=== PATIENT | female | born 1975 | race Caucasian/White ===

== ENCOUNTER 2019-07-17 12:40 | Outpatient (CLI) | payer OTHER, SELFPAY ==
--- NOTE | ~2019-07-17 | MMUS_ITS ---
EXAMINATION: MM diagnostic julia BI w kristin, US breast RT complete HISTORY: Right breast pain and axillary pain TECHNIQUE: Additional 3-D tomosynthesis images of the breasts were performed and synthetic 2-D images were generated. CAD analysis was submitted and interpreted. High resolution right breast ultrasound was performed. COMPARISON: 12/22/2014 FINDINGS: MAMMOGRAPHIC FINDINGS: Breast composed of scattered areas of fibroglandular density. There are no suspicious masses, calcifi cations or architectural distortion in either breast to suggest malignancy. ULTRASOUND: Right breast/axillary ultrasound: In the area of pain at 3:00 in the right breast there is no discret e solid or cystic mass. There are multiple normal-appearing right axillary lymph nodes, largest measu ring 1.3 cm with normal fatty hilum. At 11:00, 4 cm from the nipple there is a 4 mm calcification cor responding to calcifications seen on mammogram. No suspicious masses to suggest malignancy. IMPRESSION: 1. No mammographic or sonographic evidence for malignancy. 2. Routine yearly screening mammogram and regular clinical breast examination are recommended. BI-RADS Category 2: Benign finding(s). Reviewed, dictated and finalized at location A. IMPRESSION: 1. No mammographic or sonographic evidence for malignancy. 2. Routine yearly screening mammogram and regular clinical breast examination a re recommended. BI-RADS Category 2: Benign finding(s).
== END 2019-07-17 12:41 | disposition home or self-care (01) ==
LOC: ANHIMG 12:44
PROVIDERS: PCP Nurse Practitioner; Visit Provider Nurse Practitioner
DX: M79.89 Other specified soft tissue disorders (principal); N64.4 Mastodynia
CPT/HCPCS: 76641; 77062; 77066; G0279

== ENCOUNTER 2019-09-16 18:16 | Emergency (ER) | payer OTHER, SELFPAY ==
[2019-09-16 18:46] VITALS: BP 112/79; PULSE 80; RESP 16; TEMP 36.9; O2SAT 100
[2019-09-16 19:06] LABS: Basophils Percent Auto 0.3 % (0.2-1.2); Eosinophils Absolute Auto 0.2 K/mm3 (0-0.3); Eosinophils Percent Auto 2.5 % (0-4.4); Hematocrit 38.7 % (37.0-47.0); Hemoglobin 13.3 g/dL (12.0-15.0); Immature Granulocyte Absolute 0.05 K/mm3 (0.00-0.031); Immature Granulocyte Percent A 0.7 % (0-0.5); Lymphocytes Absolute Auto 2.02 K/mm3 (0.9-3.2); Lymphocytes Percent Auto 29.2 % (18.3-44.2); Mean Corpuscular HGB Conc 34.4 g/dl (32-36); Mean Corpuscular Hemoglobin 30.6 pg (26-34); Mean Platelet Volume 9.6 fl (7.4-10.4); Monocytes Absolute Auto 0.6 K/mm3 (0.1-0.6); Monocytes Percent Auto 9.1 % (2.6-8.5); Neutrophils Percent Auto 58.2 % (45.5-73.1); Platelet Count Result 332 k/mm3 (150-375); Red Blood Count 4.35 M/mm3 (4.2-5.4); Red Cell Distribution Width 12.1 % (11.5-14.5); White Blood Count 6.9 K/mm3 (4.5-10.0)
[2019-09-16 19:17] LABS: Alanine Aminotransferase 30 U/L (4-35); Albumin Level 3.9 g/dL (3.5-5.1); Alkaline Phosphatase 68 U/L (38-126); Anion Gap 11.6 mmol/L (7-16); Aspartate Amino Transferase 30 U/L (14-36); Bilirubin,Total 0.5 mg/dL (0.2-1.3); Blood Urea Nitrogen 9 mg/dL (7-17); Calcium 8.8 mg/dL (8.4-10.2); Carbon Dioxide 27 mmol/L (22-30); Chloride 104 mmol/L (98-107); Estimated CRCL calculation 98 ml/min; Estimated Glomerular Filt Rate > 60; Glucose 86 mg/dL (65-105); Lipase 86 U/L (23-300); Potassium 3.6 mmol/L (3.4-5.0); Sodium 139 mmol/L (137-145)
[2019-09-16 20:08] VITALS: BP 120/86; PULSE 81; RESP 21; O2SAT 100
--- NOTE | 2019-09-16 20:10 | ED.URI ---
HPI - URI/Sore Throat General Chief Complaint: Upper Respiratory Infection Stated Complaint: vomiting Time Seen by Provider: 09/16/19 20:10 History of Present Illness HPI Narrative: She was recently started on Augmentin for sinusitis. Shortlly after starting this she gegan having GI upset. She was changed to amoxicillin. She continues to have nausea. Related Data Home Medications Medication Instructions Recorded Confirmed aspirin 81 mg PO DAILY 09/16/19 cholecalciferol (vitamin D3) 10 mcg PO DAILY 09/16/19 [Vitamin D3] oxybutynin chloride 5 mg PO BID 09/16/19 sertraline mg 09/16/19 Allergies Allergy/AdvReac Type Severity Reaction Status Date / Time No Known Allergies Allergy Unknown Verified 09/16/19 20:10 Review of Systems Review of Systems: All systems reviewed & are unremarkable except as noted in HPI and below Constitutional: Constitutional: Denies fever(s) ENT: Denies sore throat Cardiovascular: Cardiovascular: Denies chest pain Respiratory: Respiratory: Denies dyspnea Gastrointestinal: Gastrointestinal: Reports diarrhea, Reports nausea and Reports vomiting Exam Const: General: healthy appearing, no acute distress and alert Orientation/consciousness: patient oriented x3 HENMT: Head: normal to inspection Neck: Neck: normal visual inspection and no lymphadenopathy Chest: Chest palpation & inspection: no tenderness Resp: Effort & Inspection: normal respiratory effort Auscultation: clear to auscultation bilaterally, no rales, no rhonchi and no wheezes Cardio: Jugular venous distension: no JVD Rate: regular rate Rhythm: regular rhythm Heart sounds: no murmurs GI: Inspection: non-distended GI Palp: Yes Soft to palpation and No Tenderness to palpation present (GI) Skin: General skin exam: normal color Neuro: General: patient oriented x3 and moves all extremities Speech: normal speech Extrem: General: no edema Psych: Appearance: well kempt Affect: normal affect Course Vital Signs Vital signs: Vital Signs Temperature 36.9 C 09/16/19 18:46 Pulse Rate 80 09/16/19 18:46 Respiratory Rate 16 09/16/19 18:46 Blood Pressure 112/79 09/16/19 18:46 Pulse Oximetry 100 09/16/19 18:46 Temperature 36.9 C 09/16/19 18:46 Pulse Rate 82 09/16/19 23:00 Respiratory Rate 17 09/16/19 23:00 Blood Pressure 120/86 09/16/19 20:08 Pulse Oximetry 97 09/16/19 23:00 MDM - URI/Sore Throat MDM Narrative Medical decision making narrative: Feeling better and tolerating PO after treatment Medical Records Attestation: I reviewed the patient's medical records. Lab Data Attestation: I reviewed the patient's lab results. Result diagrams: 09/16/19 19:00 09/16/19 19:00 Labs: Lab Results 09/16/19 09/16/19 09/16/19 Range/Units 19:00 19:00 20:05 WBC 6.9 (4.5-10.0) K/mm3 RBC 4.35 (4.2-5.4) M/mm3 Hgb 13.3 (12.0-15.0) g/dL Hct 38.7 (37.0-47.0) % MCV 89.0 (80-100) fl MCH 30.6 (26-34) pg MCHC 34.4 (32-36) g/dl RDW 12.1 (11.5-14.5) % Plt Count 332 (150-375) k/mm3 MPV 9.6 (7.4-10.4) fl Immature Gran % (Auto) 0.7 H (0-0.5) % Neut % (Auto) 58.2 (45.5-73.1) % Lymph % (Auto) 29.2 (18.3-44.2) % [place] % (Auto) 9.1 H (2.6-8.5) % Eos % (Auto) 2.5 (0-4.4) % Baso % (Auto) 0.3 (0.2-1.2) % Lymph # (Auto) 2.02 (0.9-3.2) K/mm3 [place] # (Auto) 0.6 (0.1-0.6) K/mm3 Eos # (Auto) 0.2 (0-0.3) K/mm3 Baso # (Auto) 0.0 (0.0-0.1) K/mm3 Abs Immat Gran (auto) 0.05 H (0.00-0.031) K/mm3 Absolute Neuts (auto) 4.0 (1.3-6.7) K/mm3 Absolute Nucleated RBC 0.0 (0.0-0.012) K/mm3 Nucleated RBC % 0.0 (0.0-0.2) % Sodium 139 (137-145) mmol/L Potassium 3.6 (3.4-5.0) mmol/L Chloride 104 (98-107) mmol/L Carbon Dioxide 27 (22-30) mmol/L Anion Gap 11.6 (7-16) mmol/L BUN 9 (7-17) mg/dL Creatinine 0.60 L (0.7-1.0) mg/dL Estim Creat Cl
[2019-09-16 20:19] LABS: Add Urine Microscopic? NO; Appearance Urine Clear (Clear); Bilirubin Urine Negative (Negative); Blood Urine Negative (Negative); Color Urine Yellow (Yellow); Glucose Urine UA Negative (Negative); Ketones Urine Negative (Negative); Leukocyte Esterase Ur Negative LEU/UL (Negative); Nitrate Urine Negative (Negative); Protein Urine Negative (Negative); Urobilinogen Urine Negative mg/dL (<2.0)
[2019-09-16] MEDS: SODIUM CHLORIDE 0.9% IV 1,000 ML 999 ML IV CONT (20:51)
[2019-09-16] MEDS: ONDANSETRON INJ 4 MG/2 ML VIAL IV PUSH (20:51)
[2019-09-16] MEDS: PANTOPRAZOLE SODIUM IV 40 MG VIAL IV PUSH (20:51)
[2019-09-16 23:00] VITALS: PULSE 82; RESP 17; O2SAT 97
== END 2019-09-16 23:00 | disposition home or self-care (01) ==
PROVIDERS: General Practice; Emergency Provider Emergency Medicine; PCP Physician Assistant
DX: R11.2 Nausea with vomiting, unspecified (principal); J32.9 Chronic sinusitis, unspecified
CPT/HCPCS: 36415; 80053; 81003; 81025; 83690; 85025; 96361; 96374; 96375; 99284; C9113; J2405; J7030

== ENCOUNTER 2019-09-24 01:02 | Outpatient (CLI) | payer OTHER, SELFPAY ==
[2019-09-24 19:35] LABS: SARS-CoV-2 RNA PCR Negative
== END 2019-09-24 01:03 | disposition home or self-care (01) ==
LOC: ANHCOVIDDT 01:02
PROVIDERS: PCP Physician Assistant; Visit Provider Internal Medicine Gastroenterology
DX: Z01.812 Encounter for preprocedural laboratory examination (principal); Z11.59 Encounter for screening for other viral diseases
CPT/HCPCS: 87635; C9803; U0003

== ENCOUNTER 2019-09-26 02:03 | Day surgery (SDC) | payer OTHER, SELFPAY ==
[2019-09-20 15:10] VITALS: BMI 34.1
[2019-09-26] MEDS: LACTATED RINGERS 1,000 ML 150 ML IV CONT (09:41)
[2019-09-26 09:43] VITALS: BP 126/76; PULSE 79; RESP 16; TEMP 36.6; O2SAT 100; BMI 34.0
--- NOTE | 2019-09-26 09:45 | PM.HPGS ---
History of Present Illness History of Present Illness Consent: Risks, benefits, and alternatives have been discussed and questions answered. Patient agrees to proceed with procedure. Chief complaint: neoplasm screening Narrative: Gail Hair is a 44 year old W female referred for her 1st screening colonoscopy. In addition to this the patient has had chronic intermittent diarrhea that has been persistent diarrhea over the past 6 months. She denies any rectal bleeding. She has some mild generalized lower abdominal discomfort. No family history of inflammatory bowel disease. No family history of colon polyps or colon cancer. Patient has had no recent travel. No history of celiac sprue. [facility] Surgical History Surgical History (Updated 09/26/19 @ 09:47 by Emeka Boss MD) History of angioplasty History of S/P T&A (status post tonsillectomy and adenoidectomy) Social History Social History Gender identity (if verbalized by the patient): Male Meds Home Medications and Allergies Home Medications Medication Instructions Recorded Confirmed Type aspirin 81 mg PO DAILY 09/16/19 09/20/19 History cholecalciferol (vitamin D3) 10 mcg PO DAILY 09/16/19 09/20/19 History [Vitamin D3] oxybutynin chloride 5 mg PO BID 09/16/19 09/20/19 History sertraline 50 mg PO DAILY 09/16/19 09/20/19 History lysine 500 mg PO DAILY 09/20/19 09/20/19 History Allergies Allergy/AdvReac Type Severity Reaction Status Date / Time No Known Allergies Allergy Unknown Verified 09/26/19 09:42 Exam Const: Orientation/consciousness: patient oriented x3 Resp: Auscultation: clear to auscultation bilaterally Cardio: Rate: regular rate Rhythm: regular rhythm Heart sounds: no murmurs GI: GI Palp: Yes Soft to palpation, No Tenderness to palpation present (GI), Yes No hepatosplenomegaly present and No Palpable mass present Auscultation: normal bowel sounds Neuro: General: patient oriented x3 and no focal motor deficits Extrem: General: no pedal edema Assessment and Plan Additional Plan screening colonoscopy and history of chronic diarrhea
--- NOTE | 2019-09-26 10:19 | WPDANESEPPF ---
Anes - Initial Pre Proc Eval Procedure: Operation Date: 09/26/19 10:00 Proposed Procedures p Screening Colonoscopy - Emeka Boss MD Date/Time: 09/26/19 10:19 Surgeon: Emeka Boss MD Pre Op Diagnosis: neoplasm screening Patient Data Age: 44 Gender: F Height: 5 ft 1 in Weight: 81.8 kg Last Vital Signs Temp 97.8 F 09/26/19 09:43 Pulse 79 09/26/19 09:43 Resp 16 09/26/19 09:43 BP 126/76 09/26/19 09:43 Pulse Ox 100 09/26/19 09:43 Allergies Allergy/AdvReac Type Severity Reaction Status Date / Time No Known Allergies Allergy Unknown Verified 09/26/19 09:42 Home Medications Medication Instructions Recorded Confirmed Type aspirin 81 mg PO DAILY 09/16/19 09/20/19 History cholecalciferol (vitamin D3) 10 mcg PO DAILY 09/16/19 09/20/19 History [Vitamin D3] oxybutynin chloride 5 mg PO BID 09/16/19 09/20/19 History sertraline 50 mg PO DAILY 09/16/19 09/20/19 History lysine 500 mg PO DAILY 09/20/19 09/20/19 History Patient hx anesthesia problems: none Family hx anesthesia problems: none PMFSH Past Medical History Medical History (Updated 09/26/19 @ 10:20 by Pranav Ch MD) Anxiety 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; has had multiple angioplasties Depression Surgical History Surgical History (Updated 09/26/19 @ 09:47 by Emeka Boss MD) History of angioplasty History of S/P T&A (status post tonsillectomy and adenoidectomy) Social History Social History Gender identity (if verbalized by the patient): Male Anes - Eval Final PreProcedure Day of Procedure 09/26/19 10:19 Patient weight: obese Heart: regular rate and rhythm Lungs: clear to auscultation Airway: Mallampati scale class II Neurological: alert and oriented Last oral intake: >/= 8 hours ASA classification: III Emergent: no Anesthetic plan: proceed Anesthesia type and monitoring: general GIVS and standard monitoring Informed Consent: The patient's anesthetic plan and its attendant risks and benefits were discussed with the patient/family/POA. Questions were solicited and answers provided to the satisfaction of the patient/family/POA.
[2019-09-26 10:47] VITALS: BP 117/69; PULSE 64; RESP 18; O2SAT 100
[2019-09-26 10:57] VITALS: BP 123/72; PULSE 68; RESP 20; O2SAT 100
[2019-09-26 11:07] VITALS: BP 126/70; PULSE 72; RESP 22; O2SAT 100
== END 2019-09-26 11:23 | disposition home or self-care (01) ==
PROVIDERS: PCP Physician Assistant; Visit Provider Internal Medicine Gastroenterology
PROC: 0DJD8ZZ Inspection of Lower Intestinal Tract, Via Natural or Artificial Opening Endoscopic (ICD-10-PCS; CPT 45378; principal; 2019-09-26 10:00)
DX: Z12.11 Encounter for screening for malignant neoplasm of colon (principal); K62.1 Rectal polyp; R19.7 Diarrhea, unspecified; I25.10 Atherosclerotic heart disease of native coronary artery without angina pectoris; F41.8 Other specified anxiety disorders; Z79.82 Long term (current) use of aspirin; E66.9 Obesity, unspecified; Z68.34 Body mass index [BMI] 34.0-34.9, adult
CPT/HCPCS: 45385; 45380; 88305; J2704; J7120

== ENCOUNTER → 2020-09-30 07:42 | Outpatient (CLI) | payer OTHER, SELFPAY ==
--- NOTE | ~2020-09-30 | MMUS_ITS ---
EXAMINATION: MM diagnostic julia BI w kristin, US breast LT limited HISTORY: Palpable left breast abnormality TECHNIQUE: Additional 3-D tomosynthesis images of the left breast were performed and synthetic 2-D im ages were generated. CAD analysis was submitted and interpreted. High resolution Limited left breast ultrasound was performed. COMPARISON: Comparison to multiple prior studies sequentially, with oldest reviewed study dated 03/2014. BREAST PARENCHYMAL COMPOSITION: Breast composition is almost entirely fatty. FINDINGS: MAMMOGRAPHIC FINDINGS: There are no suspicious masses, calcifications or architectural distortion in either breast to sugges t malignancy. ULTRASOUND: Limited left breast ultrasound: At 12:00, 6.5 cm from the nipple there is a 3 mm cyst. No suspicious masses to suggest malignancy. IMPRESSION: 1. No evidence for malignancy in either breast. 2. Routine yearly screening mammogram and regular clinical breast examination are recommended. BI-RADS Category 2: Benign finding(s). Reviewed, dictated and finalized at location A. IMPRESSION: 1. No evidence for malignancy in either breast. 2. Routine yearly screening mammogram and regular clinical breast examination a re recommended. BI-RADS Category 2: Benign finding(s).
== END ==
PROVIDERS: PCP Physician Assistant; Visit Provider Nurse Practitioner
DX: N63.20 Unspecified lump in the left breast, unspecified quadrant (principal); N60.02 Solitary cyst of left breast
CPT/HCPCS: 76642; 77062; 77066; G0279

== ENCOUNTER 2021-03-14 11:46 | Emergency (ER) | payer OTHER, SELFPAY ==
--- NOTE | 2021-03-14 11:52 | ED.URI ---
HPI - URI/Sore Throat General Chief Complaint: Upper Respiratory Infection Stated Complaint: Sinus Infection Time Seen by Provider: 03/14/21 11:52 Source: patient, family, RN notes reviewed and old records reviewed Mode of arrival: ambulatory Limitations: no limitations History of Present Illness HPI Narrative: 45-year-old female presents to the [facility] sinus pain, pressure for approximately 3 weeks. Has tried [id number] products with no relief. Denies fevers. No chest pain or abdominal pain. MD elicited complaint: nasal congestion Related Data Home Medications Medication Instructions Recorded Confirmed aspirin 81 mg PO DAILY 09/16/19 03/14/21 cholecalciferol (vitamin D3) 10 mcg PO DAILY 09/16/19 03/14/21 [Vitamin D3] oxybutynin chloride 5 mg PO BID 09/16/19 03/14/21 sertraline 50 mg PO DAILY 09/16/19 03/14/21 lysine 500 mg PO DAILY 09/20/19 03/14/21 Allergies Allergy/AdvReac Type Severity Reaction Status Date / Time No Known Allergies Allergy Unknown Verified 03/14/21 11:48 Review of Systems Review of Systems: All systems reviewed & are unremarkable except as noted in HPI and below Constitutional: Constitutional: Reports no additional constitutional complaints, Denies chills, Denies fever(s) and Denies headache(s) Eyes: Eyes: Reports no additional eye complaints ENT: Reports as per HPI, Denies vertigo, Denies dizziness, Denies headache(s), Reports nasal congestion and Denies sore throat Cardiovascular: Cardiovascular: Reports no additional cardiovascular complaints, Denies chest pain, Denies syncope, Denies rapid heart rate and Denies dyspnea Respiratory: Respiratory: Reports no additional respiratory complaints, Denies cough, Denies dyspnea and Denies wheezing Gastrointestinal: Gastrointestinal: Reports no additional gastrointestinal complaints, Denies abdominal pain, Denies diarrhea, Denies nausea and Denies vomiting Musculoskeletal: Musculoskeletal: Reports no additional musculoskeletal complaints and Denies numbness Integumentary/Breasts: Skin/Breast: Reports system reviewed and no additional complaints, except as docu Neurologic: Reports system reviewed and no additional complaints, except as documented, Denies vertigo, Denies dizziness, Denies syncope, Denies headache(s), Denies focal weakness and Denies numbness Psychiatric: Psychiatric: Reports no additional psychiatric complaints Allergic/Immunologic: Allergic/Immunologic: Reports no additional allergic/immunologic complaints and Denies wheezing PMFSH Past Medical History Medical History (Updated 03/14/21 @ 19:36 by Felicia Van) Anxiety 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 There is no relevant family history pertinent to the patient complaint. Exam Const: General: cooperative, healthy appearing, no acute distress, well developed and alert Nutritional Appearance: well nourished Orientation/consciousness: patient oriented x3 Limitations: no limitations HENMT: Head: normal to inspection Ears: external ears normal, TM's normal bilaterally and EAC's normal General nose exam: Abnormal mucous membranes and turbinates present boggy bilateral and erythematous bilateral Face and sinus: normal facial exam, face symmetric and sinus tenderness frontal and maxillary Mouth: Yes Normal oral and palatal mucosa present Throat: posterior oropharynx normal Eyes: Conjunctivae: conjunctivae normal Pupils: Equal, round and reactive pupils
[2021-03-14 11:55] VITALS: BP 141/78; PULSE 77; RESP 18; TEMP 36.6; O2SAT 100
== END 2021-03-14 12:08 | disposition home or self-care (01) ==
PROVIDERS: Emergency Provider Nurse Practitioner; PCP Physician Assistant
DX: J32.9 Chronic sinusitis, unspecified (principal); Q24.5 Malformation of coronary vessels; Z95.1 Presence of aortocoronary bypass graft; F41.9 Anxiety disorder, unspecified; F32.A Depression, unspecified
CPT/HCPCS: 99213; G0463

== ENCOUNTER → 2021-09-22 13:12 | Outpatient (CLI) | payer OTHER, SELFPAY ==
--- NOTE | ~2021-09-22 | US_ITS ---
EXAMINATION: US thyroid DATE: 09/22/2021 13:40 INDICATION: Thyroid disorder. Dysphasia. TECHNIQUE: Multiple ultrasound images of the thyroid were obtained. COMPARISON: None. FINDINGS: The right thyroid lobe measures 4.5 x 2.0 x 1.5 cm. The left thyroid lobe measures 4.0 x 1.6 x 1.4 c m. There is normal echotexture and echogenicity throughout the thyroid gland. 4 mm inferior left lob e cyst, of doubtful clinical significance. Otherwise no discrete nodules identified. Normal vascular flow is present. IMPRESSION: 1. Normal thyroid ultrasound findings. Reviewed, dictated and finalized at location K.
== END ==
PROVIDERS: PCP Nurse Practitioner; Visit Provider Nurse Practitioner
DX: E07.9 Disorder of thyroid, unspecified (principal)
CPT/HCPCS: 76536

== ENCOUNTER → 2021-11-18 16:58 | Outpatient (CLI) | payer OTHER, SELFPAY ==
--- NOTE | ~2021-11-18 | MM_ITS ---
EXAMINATION: MM screening julia BI w kristin HISTORY: Screening mammogram TECHNIQUE: Craniocaudal and mediolateral oblique 3-D tomosynthesis images were obtained and synthetic 2-D images were generated. CAD analysis was submitted and interpreted. COMPARISON: 10/31/2020 diagnostic bilateral mammogram and limited left breast ultrasound examination. 07/17/2019 diagnostic bilateral mammogram and complete right breast ultrasound 09/28/2017 bilateral screening mammogram BREAST PARENCHYMAL COMPOSITION: There are scattered areas of fibroglandular density. FINDINGS: Stable mild fibroglandular asymmetry. Occasional benign calcifications. There is no evidenc e of suspicious mass, calcification, or architectural distortion to suggest malignancy in either [address]. There has been no suspicious interval change. IMPRESSION: 1. No mammographic evidence of malignancy. 2. Routine mammographic screening is recommended. BI-RADS Category 2: Benign finding(s). Reviewed, dictated and finalized at location A.
== END ==
PROVIDERS: PCP Nurse Practitioner Family; Visit Provider Nurse Practitioner
DX: Z12.31 Encounter for screening mammogram for malignant neoplasm of breast (principal)
CPT/HCPCS: 77063; 77067

== ENCOUNTER 2023-08-16 12:45 | Outpatient (CLI) | payer OTHER, SELFPAY ==
--- NOTE | ~2023-08-16 | MM_ITS ---
EXAMINATION: MM screening julia BI w kristin HISTORY: Screening mammogram TECHNIQUE: Craniocaudal and mediolateral oblique 3-D tomosynthesis images were obtained and synthetic 2-D images were generated. CAD analysis was submitted and interpreted. COMPARISON: 11/18/2021, 09/30/2020, 07/17/2019 BREAST PARENCHYMAL COMPOSITION:Not Dense. The breasts are almost entirely fatty FINDINGS: No suspicious mass, calcification, or architectural distortion are identified in either won ast to suggest malignancy. There has been no suspicious interval change. IMPRESSION: No mammographic evidence of malignancy. Recommend routine screening mammography in one year. BI-RADS Category 1: Negative Reviewed, dictated and finalized at location .
== END 2023-08-16 12:46 ==
PROVIDERS: PCP Advanced Practice Midwife; Visit Provider Advanced Practice Midwife
DX: Z12.31 Encounter for screening mammogram for malignant neoplasm of breast (principal)
CPT/HCPCS: 77063; 77067

== ENCOUNTER 2024-09-06 07:21 | Outpatient (CLI) | payer OTHER, SELFPAY ==
--- NOTE | ~2024-09-06 | MM_ITS ---
EXAMINATION: MM screening julia BI w kristin HISTORY: Screening TECHNIQUE: Craniocaudal and mediolateral oblique 3-D tomosynthesis images were obtained and synthetic 2-D images were generated. CAD analysis was submitted and interpreted. COMPARISON: Comparison to multiple prior studies sequentially, with oldest reviewed study dated 10/2016. BREAST PARENCHYMAL COMPOSITION: Not dense: There are scattered areas of fibroglandular density. FINDINGS: There is no evidence of suspicious mass, calcification, or architectural distortion to sugg est malignancy in either breast. There has been no suspicious interval change. IMPRESSION: 1. No mammographic evidence of malignancy. 2. Recommend routine screening mammography in one year. BI-RADS Category 1: Negative Reviewed, dictated and finalized at location B.
== END 2024-09-06 07:22 | disposition home or self-care (01) ==
LOC: MICIMG 07:22
PROVIDERS: PCP Obstetrics & Gynecology Gynecology; Visit Provider Obstetrics & Gynecology Gynecology
DX: Z12.31 Encounter for screening mammogram for malignant neoplasm of breast (principal)
CPT/HCPCS: 77063; 77067

== ENCOUNTER 2025-02-11 09:04 | Outpatient (CLI) | payer OTHER, SELFPAY ==
--- NOTE | ~2025-02-11 | US_ITS ---
EXAMINATION: US pelvic complete w TV INDICATION: Pelvic pain Comparison:No prior studies for comparison. TECHNIQUE: Multiple transabdominal and endovaginal sonographic images of the pelvis performed. FINDINGS: The uterus measures 7 x 3.6 x 6.1 cm. The endometrial complex measures 4 mm. The right ovary is not visualized. Left ovary is normal measuring 1.5 x 1.1 x 1.5 cm with normal Doppler signal. There is no free fluid in the pelvis. There are no abnormal masses seen on either side. IMPRESSION: 1. Unremarkable pelvic ultrasound. Reviewed, dictated and finalized at location O. [facility] C[facility] REGISTERED NURSE
--- NOTE | ~2025-02-11 | DEXA_ITS ---
Bone Density Report Name: ANDREW LEE Age: 49 Sex: Female Ethnicity: White Date of : 1975 Indication: postmenopausal; screening for osteoporosis; height loss; Referring Provider: CINTIA, ELE Cano Study: Bone densitometry was performed. Exam Date: February 11, 2025 Accession number: [id number] Bone Density: Region BMD T-score Z-score Classification AP Spine(L1-L4) 1.136 0.8 1.6 Normal Femoral Neck (Left) 0.780 -0.6 0.1 Normal Total Hip (Left) 1.032 0.7 1.2 Normal Femoral Neck (Right) 0.774 -0.7 0.1 Normal Total Hip (Right) 1.004 0.5 1.0 Normal Total Hip Mean 1.018 0.6 1.1 Normal World Health Organization criteria for BMD impression classify patients as: Normal (T-score at or above -1.0), Osteopenia (T-score between -1.0 and -2.5), or Osteoporosis (T-score at or below -2.5). 10-year Fracture Risk: FRAX not reported because: All T-scores for Spine Total, Hip Total, Femoral Neck at or above -1.0 Clinical Information Provided by Patient: Has used the following medications: Vitamin D Patient maximum height was 62 Menopause Age: 47 No regular weight bearing exercise Onset of menses at age 9 Number of children 2 Impression: The patient has normal bone mass. Discussion: BONE DENSITY IS ABOVE THE MINIMUM DESIRABLE LEVEL AT ALL SKELETAL SITES TESTED. This patient?s bone mineral density is above the minimum desirable level (T-score -1.0 or better) at all sites measured. The patient should follow a healthful lifestyle (good nutrition with adequate calcium and vitamin D, and appropriate weight-bearing exercise). Follow-Up: Consider repeating this study in 5 years or sooner if there is some new clinical indication. Reported by: CAITY on 02/11/2025 9:32:00 AM. Reviewed, dictated and finalized at location A.
== END 2025-02-11 09:05 | disposition home or self-care (01) ==
LOC: MICIMG 09:05
PROVIDERS: PCP Nurse Practitioner Family
DX: R10.20 Pelvic and perineal pain unspecified side (principal); Z13.820 Encounter for screening for osteoporosis; Z78.0 Asymptomatic menopausal state
CPT/HCPCS: 76830; 76856; 77080